=== PATIENT | female | born 2000 | race Caucasian/White ===

== ENCOUNTER 2020-09-04 08:01 | Emergency (ER) | payer OTHER ==
[2020-09-04] MEDS ORDERED: NORMAL SALINE 1000 ML 1,000 ML IV ONE (09:06)
--- NOTE | 2020-09-04 09:10 | ER Document Report ---
ED GI/ - General Chief Complaint: Abdominal Pain Stated Complaint: ABDOMINAL PAIN Time Seen by Provider: 09/04/20 08:52 Notes: CHIEF COMPLAINT: HPI: ROS: See HPI - all other systems were reviewed and are otherwise negative Constitutional: no fever Eyes: no drainage, no blurred vision ENT: no runny nose, no sore throat Cardiovascular: no chest pain Resp: no SOB, no cough GI: no vomiting, no diarrhea, no abdominal pain : no dysuria Integumentary: no rash Allergy: no hives Musculoskeletal: no extremity pain or swelling Neurological: no numbness/tingling, no weakness MEDICATIONS: I agree with the patient medications as charted by the RN. ALLERGIES: I agree with the allergies as charted by the RN. PAST MEDICAL HISTORY/PAST SURGICAL HISTORY: Reviewed and agree as charted by RN. SOCIAL HISTORY: Reviewed and agree as charted by RN. FAMILY HISTORY: No significant familial comorbid conditions directly related to patient complaint EXAM: Reviewed vital signs as charted by RN. CONSTITUTIONAL: Alert and oriented and responds appropriately to questions. Well-appearing; well-nourished HEAD: Normocephalic; atraumatic EYES: PERRL; Conjunctivae clear, sclerae non-icteric ENT: normal nose; no rhinorrhea; moist mucous membranes; pharynx without lesions noted, no uvula edema or deviation, no tonsillar hypertrophy, phonation normal NECK: Supple without meningismus; non-tender; no cervical lymphadenopathy, no masses CARD: RRR; no murmurs, no clicks, no rubs, no gallops; symmetric distal pulses RESP: Normal chest excursion without splinting or tachypnea; breath sounds clear and equal bilaterally; no wheezes, no rhonchi, no rales, pulse oximetry ABD/GI: Normal bowel sounds; non-distended; soft, non-tender, no rebound, no guarding; no palpable organomegaly or masses. BACK: The back appears normal and is non-tender to palpation, there is no CVA tenderness EXT: Normal ROM in all joints; non-tender to palpation; no cyanosis, no effusions, no edema SKIN: Normal color for age and race; warm; dry; good turgor; no acute lesions noted NEURO: Moves all extremities equally; Motor and sensory function intact PSYCH: The patient's mood and manner are appropriate. Grooming and personal hygiene are appropriate. MDM: - Related Data Allergies/Adverse Reactions: No Known Allergies Allergy (Verified 09/04/20 09:24) Past Medical History - Social History Smoking Status: Never Smoker Chew tobacco use (# tins/day): No Frequency of alcohol use: None Drug Abuse: None Family History: Reviewed & Not Pertinent Patient has homicidal ideation: No Physical Exam - Vital signs Vitals: Temp Pulse Resp BP Pulse Ox 98.6 F 80 18 134/84 H 99 09/04/20 08:07 09/04/20 08:07 09/04/20 08:07 09/04/20 08:07 09/04/20 08:07 Course - Re-evaluation Re-evalutation: 09/04/20 11:[address] Rossi [employer] about the patient's ultrasound which shows bilateral ovarian cyst and questionable hydrosalpinx on the right. She did review the ultrasound and agrees that these are simple cysts but she cannot completely rule out a small hydrosalpinx. GC and Chlamydia are pending she does recommend doxycycline for 7 days. Patient is to call her PCP because she will need a PCP referral with her insurance to the [employer] [facility]. Patient has declined pel yanet exam in the emergency department today but she has never had one before. She states that she does have a primary care appointment with Dr. Ochoa on Monday but they will call the office today to obtain a [employer] referral. We did discuss her evaluation results at length. If she has worsening pain she may return for reevaluation. We did review torsion precautions - Vital Signs Vital signs: Temp Pulse Resp BP Pulse Ox 98.6 F 80 18 134/84 H 99 09/04/20 08:07 09/04/20 08:07 09/04/20 08:07 09/04/20 08:07 09/04/20 08:07 - Laboratory Result Diagrams: 09/04/20 09:04 09/04/20 09:04 Discharge - Discharge Clinical Impression: Ovarian cyst, bilateral, Hydrosalpinx Condition: Stable Disposition: HOME, SELF-CARE Additional Instructions: Take ibuprofen for pain. Take the doxycycline as prescribed. Call your primary care provider today because you will need a referral to the [employer] [facility] from the primary care office. If you have any difficulty obtaining the referral you may call the [employer] office directly to be followed up from the emergency department. It was noted on your ultrasound today that you do have bilateral ovarian cyst likely causing your discomfort but there was a question of some swelling of the fallopian tube on the right which is why you are being placed on antibiotics. If you have sudden onset of worsening pain please return for reevaluation otherwise continue to follow-up through the [facility] [facility] office Prescriptions: Doxycycline Monohydrate 100 mg PO BID #14 capsule Ibuprofen [Motrin 600 Mg Tablet] 600 mg PO TID #15 tablet Referrals: JIMBO OCHOA DO [Primary Care Provider] - Follow up as needed JORGE ROSSI MD [ACTIVE STAFF] - Follow up as needed
[2020-09-04 09:27] LABS: ABSOLUTE EOSINOPHILS # (AUTO) 0.1 10^3/uL (0.0-0.6); ABSOLUTE LYMPHOCYTES (AUTO) 1.5 10^3/uL (0.5-4.7); ABSOLUTE MONOCYTES (AUTO) 0.9 10^3/uL (0.1-1.4); BASOPHILS % (AUTO) 0.3 % (0-2); EOSINOPHILS % (AUTO) 0.7 % (0-6); HEMATOCRIT 40.4 % (36.0-47.0); HEMOGLOBIN 13.7 g/dL (12.0-15.5); MEAN CORPUSCULAR HEMOGLOBIN 30.5 pg (27.0-33.4); MEAN CORPUSCULAR VOLUME 90 fl (80-97); MONOCYTES % (AUTO) 10.1 % (3-13); PLATELET COUNT 432 10^3/uL (150-450); RED BLOOD COUNT 4.51 10^6/uL (3.72-5.28); RED CELL DISTRIBUTION WIDTH 12.5 % (11.5-14.0); SEGMENTED NEUTROPHILS % (AUTO) 70.9 % (42-78); TOTAL CELLS COUNTED % (AUTO) 100 %; WHITE BLOOD COUNT 8.5 10^3/uL (4.0-10.5)
[2020-09-04 09:40] LABS: ALBUMIN 4.7 g/dL (3.5-5.0); ALKALINE PHOSPHATASE 85 U/L (38-126); ANION GAP 13 (5-19); ASPARTATE AMINO TRANSFERASE 20 U/L (14-36); BILIRUBIN,DIRECT 0.1 mg/dL (0.0-0.4); BILIRUBIN,TOTAL 0.4 mg/dL (0.2-1.3); BLOOD UREA NITROGEN 10 mg/dL (7-20); CARBON DIOXIDE 26 mmol/L (22-30); CHLORIDE 105 mmol/L (98-107); GLUCOSE 97 mg/dL (75-110); POTASSIUM 3.9 mmol/L (3.6-5.0); TOTAL PROTEIN 8.1 g/dL (6.3-8.2)
[2020-09-04 10:40] LABS: APPEARANCE,URINE CLEAR; BILIRUBIN,URINE NEGATIVE (NEGATIVE); COLOR,URINE YELLOW; GLUCOSE, URINE NEGATIVE (NEGATIVE); KETONES,URINE NEGATIVE (NEGATIVE); LEUKOCYTE ESTERASE,URINE NEGATIVE (NEGATIVE); NITRITE,URINE NEGATIVE (NEGATIVE); PROTEIN,URINE NEGATIVE (NEGATIVE); URINE SPECIFIC GRAVITY 1.014; UROBILINOGEN,URINE NEGATIVE mg/dL (<2.0)
--- NOTE | 2020-09-04 11:05 | RADIOLOGY REPORT (SQ) ---
EXAM DESCRIPTION: U/S NON OB PEL W/DOPPLER IMAGES COMPLETED DATE/TIME: 09/04/2020 10:42 am REASON FOR STUDY: pelvic pain COMPARISON: None. TECHNIQUE: Dynamic and static grayscale images acquired of the pelvis via transabdominal and transva ginal approach and recorded on PACS. Additional selected color Doppler and spectral images recorded. LIMITATIONS: None. FINDINGS: UTERUS: Contour normal. No mass. ENDOMETRIAL STRIPE: No focal or generalized thickening. No masses. CERVIX: No nabothian cysts. RIGHT OVARY AND DOPPLER: Normal size. No worrisome masses. Normal arterial vascular flow without evid ence for torsion. There is a 2.8 x 2.7 x 2.6 cm hypoattenuating lesion in the right adnexum. This c ould represent ovarian cyst possibly dilated right ovarian 2. LEFT OVARY AND DOPPLER: Normal size. No worrisome masses. Normal arterial vascular flow without evide nce for torsion. There is a 1.6 cm left ovarian cyst. FREE FLUID: There is a small amount of fluid noted in the right adnexum. OTHER: No other significant finding. MEASUREMENTS: UTERUS: 8.0 x 4.7 x 4.1 cm. ENDOMETRIAL STRIPE: 7.6 mm RIGHT OVARY: 5.8 x 5.9 x 3.1 cm. LEFT OVARY: 3.9 x 2.4 x 2.2 cm. IMPRESSION: 2.8 x 2.7 x 2.6 cm hypoechoic lesion in the right adnexum. Possibly ovarian cyst or dil ated right ovarian tube. Small amount of free fluid in the right adnexa. TECHNICAL DOCUMENTATION: JOB ID: [id number] 2010 [employer]- All Rights Reserved Rev Reading location - IP/workstation name: [email or web address]
[2020-09-04 12:10] LABS: CHLAM PCR NOT DETECTED (NOT DETECT)
[2020-09-04 12:20] VITALS: BP 115/77
== END 2020-09-04 12:20 | disposition home or self-care (01) ==
LOC: ER 08:01
DX: N83.292 Other ovarian cyst, left side (principal); N83.291 Other ovarian cyst, right side; N70.11 Chronic salpingitis; R10.9 Unspecified abdominal pain
CPT/HCPCS: 99285; 96360; 36415; 83690; 84703; 85025; 81025; 80053; 81001; 87491; 87591; 76856; 93976; J7030